=== PATIENT | female | born 1935 | race Caucasian/White ===

== ENCOUNTER 2017-08-13 19:11 | Inpatient (IN) | payer OTHER, MEDICAID ==
[2017-08-13] MEDS: ONDANSETRON 4 MG INJ IV (20:26)
[2017-08-13] MEDS: SOD CHLORIDE 0.9% 1,000 ML IV (20:26)
[2017-08-13] MEDS: morphine 4 MG/ML VIAL IV (20:26)
[2017-08-13 20:29] LABS: ADD MAN DIFF? NO
[2017-08-13 20:32] LABS: BASOPHILS % 0.4 % (0.0-2.0); EOSINOPHILS # 0.3 10^3/ul (0.0-0.5); EOSINOPHILS % 3.6 % (0.0-7.0); HEMATOCRIT 40.4 % (37.0-47.0); HEMOGLOBIN 13.3 g/dl (12.0-16.0); LYMPHOCYTES # 1.9 10^3/ul (0.8-2.9); LYMPHOCYTES % 20.5 % (15.0-51.0); MEAN CORPUSCULAR HEMOGLOBIN 26.8 pg (29.0-33.0); MEAN CORPUSCULAR HGB CONC 32.9 g/dl (32.0-37.0); MEAN CORPUSCULAR VOLUME 81.5 fl (82.0-101.0); MEAN PLATELET VOLUME 10.8 fl (7.4-10.4); MONOCYTE # 0.4 10^3/ul (0.3-0.9); MONOCYTES % 4.7 % (0.0-11.0); NEUTROPHIL # 6.6 10^3/ul (1.6-7.5); NEUTROPHILS % 70.3 % (39.0-77.0); PLATELET COUNT 163 10^3/UL (140-415); RED BLOOD COUNT 4.96 10^6/ul (4.20-5.40)
[2017-08-13 20:32] LABS: WHITE BLOOD COUNT 9.4 10^3/ul (4.8-10.8)
[2017-08-13 20:51] LABS: ANION GAP 15 (8-16); BLOOD UREA NITROGEN 24 mg/dl (7-20); CALCIUM 9.7 mg/dl (8.4-10.2); CARBON DIOXIDE 23 mmol/L (21-31); CHLORIDE 106 mmol/L (97-110); CREATININE 0.73 mg/dl (0.44-1.00); GLUCOSE 331 mg/dl (70-220); INR 0.91; POTASSIUM 4.6 mmol/L (3.5-5.1); PROTIME 12.3 Sec (11.9-14.9); SODIUM 139 mmol/L (135-144)
[2017-08-13 20:52] LABS: PARTIAL THROMBOPLASTIN TIME 24.7 Sec (25.0-35.0)
[2017-08-13 21:09] LABS: ADD UMIC YES; UR ASCORBIC ACID NEGATIVE (NEGATIVE); UR BACTERIA FEW /HPF (NONE SEEN); UR BILIRUBIN (Dip) NEGATIVE (NEGATIVE); UR BLOOD (Dip) 1+ mg/dL (NEGATIVE); UR CLARITY CLOUDY (CLEAR); UR COLOR YELLOW (YELLOW); UR GLUCOSE (Dip) 3+ mg/dL (NEGATIVE); UR KETONES (Dip) NEGATIVE (NEGATIVE); UR LEUKOCYTE ESTERASE (Dip) 2+ Leu/ul (NEGATIVE); UR MUCUS FEW /HPF (NONE SEEN); UR NITRITE (Dip) NEGATIVE (NEGATIVE); UR RBC 6 /HPF (0-5); UR SPECIFIC GRAVITY (Dip) 1.017 (1.003-1.030); UR TOTAL PROTEIN (Dip) 1+ mg/dl (NEGATIVE); UR UROBILINOGEN (Dip) 1+ mg/dL (NEGATIVE); UR WBC 163 /HPF (0-5)
[2017-08-13] MEDS: morphine 10 MG INJ IV (23:43)
[2017-08-14] MEDS ORDERED: morphine 2 MG INJ IV (01:30)
[2017-08-14 01:32] LABS: ADD UMIC YES; UR ASCORBIC ACID NEGATIVE (NEGATIVE); UR BACTERIA FEW /HPF (NONE SEEN); UR BILIRUBIN (Dip) NEGATIVE (NEGATIVE); UR BLOOD (Dip) NEGATIVE (NEGATIVE); UR CLARITY SLIGHTLY CLOUDY (CLEAR); UR COLOR YELLOW (YELLOW); UR GLUCOSE (Dip) 3+ mg/dL (NEGATIVE); UR KETONES (Dip) TRACE mg/dL (NEGATIVE); UR LEUKOCYTE ESTERASE (Dip) TRACE Leu/ul (NEGATIVE); UR NITRITE (Dip) POSITIVE (NEGATIVE); UR RBC 0 /HPF (0-5); UR SPECIFIC GRAVITY (Dip) 1.013 (1.003-1.030); UR TOTAL PROTEIN (Dip) NEGATIVE (NEGATIVE); UR UROBILINOGEN (Dip) NEGATIVE (NEGATIVE); UR WBC 5 /HPF (0-5)
[2017-08-14] MEDS ORDERED: GLUCOSE GEL 15 GRAM TUBE PO ×2 (02:00)
[2017-08-14] MEDS ORDERED: GLUCOSE GEL 15 GRAM TUBE BUCCAL (02:00)
[2017-08-14] MEDS: ACCU-CHEK XX (02:00)
[2017-08-14] MEDS ORDERED: DEXTROSE 50% 50 ML SYRINGE IV ×2 (02:00)
[2017-08-14] MEDS ORDERED: GLUCAGON 1 MG INJ IM (02:00)
[2017-08-14] MEDS ORDERED: ALBUTEROL/IPRATROPIUM (NEB) 3 ML AMP HHN (05:30)
[2017-08-14] MEDS ORDERED: ALBUTEROL HFA 8 GM INHALER INH (05:30)
[2017-08-14] MEDS ORDERED: NACL 0.9% 3 ML SYG IV (05:30)
[2017-08-14] MEDS: CEFTRIAXONE 1 GM/50 ML (PMX) 50 ML IVPB (05:57)
[2017-08-14 06:24] LABS: ADD MAN DIFF? NO
[2017-08-14 06:31] LABS: BASOPHILS % 0.3 % (0.0-2.0); EOSINOPHILS # 0.1 10^3/ul (0.0-0.5); EOSINOPHILS % 1.1 % (0.0-7.0); HEMATOCRIT 35.7 % (37.0-47.0); HEMOGLOBIN 11.7 g/dl (12.0-16.0); LYMPHOCYTES # 1.8 10^3/ul (0.8-2.9); LYMPHOCYTES % 20.1 % (15.0-51.0); MEAN CORPUSCULAR HEMOGLOBIN 26.7 pg (29.0-33.0); MEAN CORPUSCULAR HGB CONC 32.8 g/dl (32.0-37.0); MEAN CORPUSCULAR VOLUME 81.5 fl (82.0-101.0); MEAN PLATELET VOLUME 10.3 fl (7.4-10.4); MONOCYTE # 0.6 10^3/ul (0.3-0.9); MONOCYTES % 7.1 % (0.0-11.0); NEUTROPHIL # 6.3 10^3/ul (1.6-7.5); NEUTROPHILS % 70.9 % (39.0-77.0); PLATELET COUNT 149 10^3/UL (140-415); RED BLOOD COUNT 4.38 10^6/ul (4.20-5.40)
[2017-08-14 06:31] LABS: WHITE BLOOD COUNT 8.9 10^3/ul (4.8-10.8)
[2017-08-14 07:04] LABS: ALANINE AMINOTRANSFERASE 23 IU/L (13-69); ALBUMIN 3.8 g/dl (3.3-4.9); ALBUMIN/GLOBULIN RATIO 1.31; ALKALINE PHOSPHATASE 121 IU/L (42-121); ANION GAP 16 (8-16); ASPARTATE AMINO TRANSFERASE 20 IU/L (15-46); BLOOD UREA NITROGEN 20 mg/dl (7-20); CARBON DIOXIDE 27 mmol/L (21-31); CHLORIDE 103 mmol/L (97-110); CREATININE 0.68 mg/dl (0.44-1.00); GLUCOSE 301 mg/dl (70-220); POTASSIUM 4.5 mmol/L (3.5-5.1); SODIUM 141 mmol/L (135-144); TOTAL PROTEIN 6.7 g/dl (6.1-8.1)
[2017-08-14 07:11] LABS: HEMOGLOBIN A1C 11.4 % (0-5.9)
[2017-08-14] MEDS: DEXTROSE 5%-0.45% NACL 1,000 ML IV (07:30)
[2017-08-14] MEDS: HEPARIN 5,000 UNIT/0.5 ML VIAL SC ×2 (08:31→21:25)
[2017-08-14] MEDS: LOSARTAN 50 MG TAB PO ×2 (08:31→12:29)
[2017-08-14] MEDS: INSULIN GLARGINE [LANtus] 3 ML PEN SC (08:34)
[2017-08-14] MEDS: INSULIN ASPART [NOVOLOG] 3 ML PEN SC ×4 (08:36→21:27)
[2017-08-14] MEDS ORDERED: hydrALAzine 20 MG INJ (18:57)
[2017-08-14] MEDS: hydrALAzine 20 MG INJ IV (18:58)
[2017-08-14] MEDS: morphine LIQ (10 MG/5 ML) CUP PO (21:19)
[2017-08-15] MEDS: SOD CHLORIDE 0.9% 1,000 ML IV ×2 (00:05→12:30)
[2017-08-15] MEDS: ACCU-CHEK XX (01:26)
[2017-08-15 06:18] LABS: ADD MAN DIFF? NO
[2017-08-15 06:30] LABS: BASOPHILS % 0.3 % (0.0-2.0); EOSINOPHILS # 0.3 10^3/ul (0.0-0.5); EOSINOPHILS % 4.2 % (0.0-7.0); HEMATOCRIT 34.9 % (37.0-47.0); HEMOGLOBIN 11.5 g/dl (12.0-16.0); LYMPHOCYTES # 1.5 10^3/ul (0.8-2.9); MEAN CORPUSCULAR HEMOGLOBIN 26.7 pg (29.0-33.0); MEAN CORPUSCULAR VOLUME 81.2 fl (82.0-101.0); MEAN PLATELET VOLUME 10.4 fl (7.4-10.4); MONOCYTE # 0.5 10^3/ul (0.3-0.9); MONOCYTES % 8.1 % (0.0-11.0); NEUTROPHIL # 4.1 10^3/ul (1.6-7.5); NEUTROPHILS % 63.1 % (39.0-77.0); PLATELET COUNT 136 10^3/UL (140-415); RED CELL DISTRIBUTION WIDTH 14.4 % (11.5-14.5)
[2017-08-15 06:30] LABS: WHITE BLOOD COUNT 6.4 10^3/ul (4.8-10.8)
[2017-08-15 06:50] LABS: ANION GAP 11 (8-16); BLOOD UREA NITROGEN 15 mg/dl (7-20); CALCIUM 9.1 mg/dl (8.4-10.2); CARBON DIOXIDE 26 mmol/L (21-31); CHLORIDE 107 mmol/L (97-110); CREATININE 0.65 mg/dl (0.44-1.00); GLUCOSE 287 mg/dl (70-220); MAGNESIUM 1.7 mg/dl (1.7-2.5); PHOSPHORUS 3.6 mg/dl (2.5-4.9); POTASSIUM 3.9 mmol/L (3.5-5.1); SODIUM 140 mmol/L (135-144)
[2017-08-15] MEDS: INSULIN GLARGINE [LANtus] 3 ML PEN SC (08:51)
[2017-08-15] MEDS: INSULIN ASPART [NOVOLOG] 3 ML PEN SC ×4 (08:51→20:26)
[2017-08-15] MEDS: LOSARTAN 50 MG TAB PO (08:52)
[2017-08-15] MEDS: HEPARIN 5,000 UNIT/0.5 ML VIAL SC ×2 (08:52→20:25)
[2017-08-15] MEDS ORDERED: BUPIVACAINE 0.75%/DEXT (SPINAL) 2 ML INJ (13:15)
[2017-08-15] MEDS ORDERED: FENTAnyl 50 MCG/ML VIAL (13:15)
[2017-08-15] MEDS ORDERED: hydrALAzine 20 MG INJ IV (13:30)
[2017-08-15] MEDS ORDERED: ONDANSETRON 4 MG INJ IV (13:30)
[2017-08-15] MEDS ORDERED: HYDROmorphONE 1 MG/5 ML IV SYRINGE IV (13:30)
[2017-08-15] MEDS ORDERED: LABETALOL HCL 20MG INJ IV (13:30)
[2017-08-15] MEDS ORDERED: CEFAZOLIN 1 GM INJ (13:49)
[2017-08-15] MEDS: BACITRACIN/POLYMYXIN 28.35 GM OINT TOP (14:07)
[2017-08-15] MEDS: POLYMYXIN/BACITRACIN 1L IRRIG (14:07)
[2017-08-15] MEDS: CEFAZOLIN 1 GM/50 ML (PMX) 50 ML IVPB ×2 (16:13→23:06)
[2017-08-15] MEDS: hydrALAzine 20 MG INJ IV (17:22)
[2017-08-15] MEDS: morphine LIQ (10 MG/5 ML) CUP PO (17:27)
[2017-08-15] MEDS: ACETAMINOPHEN 325 MG TAB PO (20:19)
[2017-08-15] MEDS: ASPIRIN (EC) 325 MG TAB PO (20:19)
[2017-08-15] MEDS: AL HYDROX/MG HYDROX/SIMETH 30 ML CUP PO (20:19)
[2017-08-15] MEDS: ONDANSETRON 4 MG INJ IV (20:20)
[2017-08-16] MEDS: ACCU-CHEK XX (02:00)
[2017-08-16] MEDS: CEFAZOLIN 1 GM/50 ML (PMX) 50 ML IVPB (08:32)
[2017-08-16] MEDS: ASPIRIN (EC) 325 MG TAB PO ×2 (08:33→20:46)
[2017-08-16] MEDS: LOSARTAN 50 MG TAB PO (08:33)
[2017-08-16] MEDS: INSULIN ASPART [NOVOLOG] 3 ML PEN SC ×5 (08:35→20:50)
[2017-08-16] MEDS: HEPARIN 5,000 UNIT/0.5 ML VIAL SC ×2 (08:36→20:53)
[2017-08-16] MEDS: INSULIN GLARGINE [LANtus] 3 ML PEN SC (08:36)
[2017-08-16] MEDS: morphine LIQ (10 MG/5 ML) CUP PO ×2 (10:17→14:17)
[2017-08-17] MEDS: ACCU-CHEK XX (01:52)
[2017-08-17] MEDS: INSULIN ASPART [NOVOLOG] 3 ML PEN SC ×8 (08:12→20:38)
[2017-08-17] MEDS: INSULIN GLARGINE [LANtus] 3 ML PEN SC (08:13)
[2017-08-17] MEDS: ASPIRIN (EC) 325 MG TAB PO ×2 (09:41→20:33)
[2017-08-17] MEDS: LOSARTAN 50 MG TAB PO (09:41)
[2017-08-17] MEDS: HEPARIN 5,000 UNIT/0.5 ML VIAL SC ×2 (09:44→20:39)
[2017-08-17] MEDS ORDERED: INSULIN ASPART [NOVOLOG] 3 ML PEN SC ×2 (12:25→18:00)
[2017-08-17] MEDS: morphine LIQ (10 MG/5 ML) CUP PO (14:55)
[2017-08-18] MEDS: ACCU-CHEK XX (02:00)
[2017-08-18] MEDS: LOSARTAN 50 MG TAB PO (08:09)
[2017-08-18] MEDS: ASPIRIN (EC) 325 MG TAB PO (08:09)
[2017-08-18] MEDS: HEPARIN 5,000 UNIT/0.5 ML VIAL SC (08:14)
[2017-08-18] MEDS: INSULIN ASPART [NOVOLOG] 3 ML PEN SC ×6 (08:14→17:31)
[2017-08-18] MEDS: INSULIN GLARGINE [LANtus] 3 ML PEN SC (08:14)
[2017-08-18] MEDS: morphine LIQ (10 MG/5 ML) CUP PO (15:23)
[2017-08-18] MEDS ORDERED: BENZOCAINE 10% 7 GM GEL MM (16:00)
[2017-08-18] MEDS ORDERED: BENZOCAINE 20% 0.33 OZ. GEL MM (16:30)
[2017-08-18] MEDS ORDERED: NITROFURANTOIN (SR) 100 MG CAP PO (21:00)
== END 2017-08-18 17:30 | DRG 481 ==
LOC: MS2 08-14 00:21 → E/R 19:11 → MS2 08-14 14:00
PROC: 0QS704Z Reposition Left Upper Femur with Internal Fixation Device, Open Approach (ICD-10-PCS; principal; 2017-08-15 13:24)
DX: S72.142A Displaced intertrochanteric fracture of left femur, initial encounter for closed fracture (principal); N39.0 Urinary tract infection, site not specified; E11.65 Type 2 diabetes mellitus with hyperglycemia; I16.0 Hypertensive urgency; B96.20 Unspecified Escherichia coli [E. coli] as the cause of diseases classified elsewhere; Z16.12 Extended spectrum beta lactamase (ESBL) resistance; I10 Essential (primary) hypertension; W01.0XXA Fall on same level from slipping, tripping and stumbling without subsequent striking against object, initial encounter; Y93.01 Activity, walking, marching and hiking; Y92.019 Unspecified place in single-family (private) house as the place of occurrence of the external cause; Y99.8 Other external cause status; Z79.82 Long term (current) use of aspirin; Z79.84 Long term (current) use of oral hypoglycemic drugs
CPT/HCPCS: 36415; 71045; 73510; 73530; 73550; 73700; 80048; 80053; 81001; 82962; 83036; 83735; 84100; 85025; 85610; 85730; 86850; 86900; 86901; 87086; 93005; 96374; 96375; 96376; 97110; 97116; 97163; 97530; 99285-25

== ENCOUNTER 2018-04-05 20:18 | Inpatient (IN) | payer OTHER ==
[2018-04-05 22:01] LABS: ADD MAN DIFF? NO
[2018-04-05] MEDS: IBUPROFEN 600 MG TAB PO (22:02)
[2018-04-05] MEDS: CEFTRIAXONE 1 GM/50 ML (PMX) 50 ML IVPB (22:03)
[2018-04-05] MEDS: SODIUM CHLORIDE 0.9% 1L BAG IV* (22:03)
[2018-04-05 22:12] LABS: ABNORMAL IP MESSAGE 1; BASOPHILS % 0.3 % (0.0-2.0); EOSINOPHILS # 0.1 10^3/ul (0.0-0.5); EOSINOPHILS % 1.1 % (0.0-7.0); HEMATOCRIT 38.1 % (37.0-47.0); HEMOGLOBIN 12.3 g/dl (12.0-16.0); LYMPHOCYTES # 0.5 10^3/ul (0.8-2.9); LYMPHOCYTES % 4.3 % (15.0-51.0); MEAN CORPUSCULAR HEMOGLOBIN 24.8 pg (29.0-33.0); MEAN CORPUSCULAR HGB CONC 32.3 g/dl (32.0-37.0); MEAN CORPUSCULAR VOLUME 76.8 fl (82.0-101.0); MEAN PLATELET VOLUME 9.8 fl (7.4-10.4); MONOCYTE # 0.6 10^3/ul (0.3-0.9); MONOCYTES % 4.9 % (0.0-11.0); NEUTROPHIL # 10.5 10^3/ul (1.6-7.5); NEUTROPHILS % 88.2 % (39.0-77.0); PLATELET COUNT 185 10^3/UL (140-415); RED BLOOD COUNT 4.96 10^6/ul (4.20-5.40); RED CELL DISTRIBUTION WIDTH 14.6 % (11.5-14.5)
[2018-04-05 22:12] LABS: WHITE BLOOD COUNT 11.9 10^3/ul (4.8-10.8)
[2018-04-05 22:24] LABS: ADD UMIC YES; UR ASCORBIC ACID NEGATIVE (NEGATIVE); UR BACTERIA FEW /HPF (NONE SEEN); UR BILIRUBIN (Dip) NEGATIVE (NEGATIVE); UR BLOOD (Dip) 1+ mg/dL (NEGATIVE); UR CLARITY SLIGHTLY CLOUDY (CLEAR); UR COLOR YELLOW (YELLOW); UR GLUCOSE (Dip) 2+ mg/dL (NEGATIVE); UR KETONES (Dip) NEGATIVE (NEGATIVE); UR LEUKOCYTE ESTERASE (Dip) 3+ Leu/ul (NEGATIVE); UR NITRITE (Dip) POSITIVE (NEGATIVE); UR RBC 7 /HPF (0-5); UR SPECIFIC GRAVITY (Dip) 1.012 (1.003-1.030); UR SQUAMOUS EPITHELIAL CELL FEW /HPF (FEW); UR TOTAL PROTEIN (Dip) NEGATIVE (NEGATIVE); UR UROBILINOGEN (Dip) NEGATIVE (NEGATIVE); UR WBC 70 /HPF (0-5)
[2018-04-05] MEDS: ONDANSETRON 4 MG INJ IV (22:26)
[2018-04-05 22:29] LABS: ALANINE AMINOTRANSFERASE 41 IU/L (13-69); ALBUMIN 4.4 g/dl (3.3-4.9); ALBUMIN/GLOBULIN RATIO 1.18; ALKALINE PHOSPHATASE 224 IU/L (42-121); ANION GAP 16 (5-13); ASPARTATE AMINO TRANSFERASE 48 IU/L (15-46); BILIRUBIN,INDIRECT 0.5 mg/dl (0-1.1); BILIRUBIN,TOTAL 0.5 mg/dl (0.2-1.3); BLOOD UREA NITROGEN 18 mg/dl (7-20); CALCIUM 10.1 mg/dl (8.4-10.2); CARBON DIOXIDE 25 mmol/L (21-31); CHLORIDE 95 mmol/L (97-110); CREATININE 0.75 mg/dl (0.44-1.00); GLUCOSE 295 mg/dl (70-220); LIPASE 58 U/L (23-300); POTASSIUM 3.2 mmol/L (3.5-5.1); SODIUM 136 mmol/L (135-144); TOTAL PROTEIN 8.1 g/dl (6.1-8.1)
[2018-04-05 22:36] LABS: PROTIME 12.3 Sec (11.9-14.9)
[2018-04-05 22:37] LABS: PARTIAL THROMBOPLASTIN TIME 23.9 Sec (23.0-35.0)
[2018-04-05 22:41] LABS: TROPONIN-I < 0.012 ng/ml (0.000-0.120)
[2018-04-05 22:52] LABS: POSITIVE DIFF @See below
[2018-04-06] MEDS ORDERED: ONDANSETRON 4 MG INJ IV (01:30)
[2018-04-06] MEDS ORDERED: DEXTROSE 50% 50 ML SYRINGE IV ×2 (01:30)
[2018-04-06] MEDS ORDERED: NACL 0.9% 3 ML SYG IV (01:30)
[2018-04-06] MEDS ORDERED: HYDROCODONE/APAP (5/325) TAB PO (01:30)
[2018-04-06] MEDS ORDERED: GLUCAGON 1 MG INJ IM (01:30)
[2018-04-06] MEDS ORDERED: GLUCOSE GEL 15 GRAM TUBE PO ×2 (01:30)
[2018-04-06] MEDS ORDERED: ACETAMINOPHEN 325 MG TAB PO (01:30)
[2018-04-06] MEDS ORDERED: GLUCOSE GEL 15 GRAM TUBE BUCCAL (01:30)
[2018-04-06] MEDS: ACCU-CHEK XX (02:00)
[2018-04-06 03:09] LABS: LACTIC ACID 2.6 mmol/L (0.5-2.0)
[2018-04-06] MEDS: LOSARTAN 50 MG TAB PO (08:14)
[2018-04-06] MEDS: metFORMIN 850 MG TAB PO ×2 (08:14→18:55)
[2018-04-06] MEDS: HYDROCHLOROTHIAZIDE 25 MG TAB PO (08:14)
[2018-04-06 08:24] LABS: ADD MAN DIFF? NO
[2018-04-06 08:28] LABS: WHITE BLOOD COUNT 9.1 10^3/ul (4.8-10.8)
[2018-04-06 08:29] LABS: BASOPHILS % 0.1 % (0.0-2.0); EOSINOPHILS % 0.2 % (0.0-7.0); HEMATOCRIT 36.3 % (37.0-47.0); HEMOGLOBIN 11.6 g/dl (12.0-16.0); LYMPHOCYTES % 11.3 % (15.0-51.0); MEAN CORPUSCULAR HEMOGLOBIN 24.8 pg (29.0-33.0); MEAN CORPUSCULAR VOLUME 77.6 fl (82.0-101.0); MEAN PLATELET VOLUME 9.7 fl (7.4-10.4); MONOCYTE # 0.4 10^3/ul (0.3-0.9); MONOCYTES % 4.6 % (0.0-11.0); NEUTROPHIL # 7.6 10^3/ul (1.6-7.5); NEUTROPHILS % 83.5 % (39.0-77.0); PLATELET COUNT 165 10^3/UL (140-415); RED BLOOD COUNT 4.68 10^6/ul (4.20-5.40)
[2018-04-06] MEDS: HEPARIN 5,000 UNIT/1 ML VIAL SC ×2 (08:30→20:36)
[2018-04-06] MEDS: INSULIN ASPART [NOVOLOG] 3 ML PEN SC ×4 (08:30→20:35)
[2018-04-06 08:49] LABS: LACTIC ACID 1.7 mmol/L (0.5-2.0)
[2018-04-06 08:51] LABS: ALANINE AMINOTRANSFERASE 37 IU/L (13-69); ALBUMIN 3.5 g/dl (3.3-4.9); ALKALINE PHOSPHATASE 125 IU/L (42-121); ANION GAP 5 (5-13); ASPARTATE AMINO TRANSFERASE 30 IU/L (15-46); BILIRUBIN,INDIRECT 0.4 mg/dl (0-1.1); BILIRUBIN,TOTAL 0.4 mg/dl (0.2-1.3); BLOOD UREA NITROGEN 15 mg/dl (7-20); CALCIUM 9.1 mg/dl (8.4-10.2); CARBON DIOXIDE 31 mmol/L (21-31); CHLORIDE 106 mmol/L (97-110); CREATININE 0.71 mg/dl (0.44-1.00); GLUCOSE 224 mg/dl (70-220); POTASSIUM 3.8 mmol/L (3.5-5.1); SODIUM 142 mmol/L (135-144); TOTAL PROTEIN 6.4 g/dl (6.1-8.1)
[2018-04-06] MEDS: CEFEPIME 1GM/50 ML (PMX) 50 ML IVPB ×2 (09:29→20:31)
[2018-04-06] MEDS: GUAIFENESIN 20 MG/ML 5ML CUP PO ×2 (13:57→20:56)
[2018-04-06] MEDS: SOD CHLORIDE 0.45% 1,000 ML IV (15:28)
[2018-04-06] MEDS: INSULIN GLARGINE [LANTus] (100 UNITS/ML) SYG SC (20:36)
[2018-04-07] MEDS: ACCU-CHEK XX (02:39)
[2018-04-07] MEDS: SOD CHLORIDE 0.45% 1,000 ML IV (04:01)
[2018-04-07 05:26] LABS: ADD MAN DIFF? NO
[2018-04-07 05:36] LABS: BASOPHILS % 0.2 % (0.0-2.0); EOSINOPHILS % 0.7 % (0.0-7.0); HEMATOCRIT 34.4 % (37.0-47.0); HEMOGLOBIN 11.2 g/dl (12.0-16.0); LYMPHOCYTES # 1.3 10^3/ul (0.8-2.9); LYMPHOCYTES % 22.3 % (15.0-51.0); MEAN CORPUSCULAR HEMOGLOBIN 24.8 pg (29.0-33.0); MEAN CORPUSCULAR HGB CONC 32.6 g/dl (32.0-37.0); MEAN CORPUSCULAR VOLUME 76.1 fl (82.0-101.0); MEAN PLATELET VOLUME 9.6 fl (7.4-10.4); MONOCYTE # 0.4 10^3/ul (0.3-0.9); MONOCYTES % 7.3 % (0.0-11.0); NEUTROPHIL # 4.1 10^3/ul (1.6-7.5); NEUTROPHILS % 69.2 % (39.0-77.0); PLATELET COUNT 138 10^3/UL (140-415); RED BLOOD COUNT 4.52 10^6/ul (4.20-5.40); RED CELL DISTRIBUTION WIDTH 14.9 % (11.5-14.5)
[2018-04-07 05:36] LABS: WHITE BLOOD COUNT 5.9 10^3/ul (4.8-10.8)
[2018-04-07 06:04] LABS: ANION GAP 6 (5-13); BLOOD UREA NITROGEN 12 mg/dl (7-20); CARBON DIOXIDE 28 mmol/L (21-31); CHLORIDE 102 mmol/L (97-110); CREATININE 0.79 mg/dl (0.44-1.00); GLUCOSE 109 mg/dl (70-220); MAGNESIUM 1.5 mg/dl (1.7-2.5); PHOSPHORUS 3.9 mg/dl (2.5-4.9); POTASSIUM 3.4 mmol/L (3.5-5.1); SODIUM 136 mmol/L (135-144)
[2018-04-07] MEDS: INSULIN ASPART [NOVOLOG] 3 ML PEN SC ×2 (08:00→12:55)
[2018-04-07] MEDS: metFORMIN 850 MG TAB PO (08:56)
[2018-04-07] MEDS: CEFEPIME 1GM/50 ML (PMX) 50 ML IVPB (08:56)
[2018-04-07] MEDS: HYDROCHLOROTHIAZIDE 25 MG TAB PO (08:56)
[2018-04-07] MEDS: LOSARTAN 50 MG TAB PO (08:57)
[2018-04-07] MEDS: HEPARIN 5,000 UNIT/1 ML VIAL SC (08:59)
[2018-04-07] MEDS: HYDROCODONE/APAP (5/325) TAB PO (09:00)
[2018-04-07] MEDS: AL HYDROX/MG HYDROX/SIMETH 30 ML CUP PO (14:12)
== END 2018-04-07 14:45 | disposition home or self-care (01) | DRG 872 ==
LOC: 2NE 23:13 → E/R 20:18
DX: A41.9 Sepsis, unspecified organism (principal); N39.0 Urinary tract infection, site not specified; E11.65 Type 2 diabetes mellitus with hyperglycemia; B96.20 Unspecified Escherichia coli [E. coli] as the cause of diseases classified elsewhere; E87.6 Hypokalemia; I16.0 Hypertensive urgency; I10 Essential (primary) hypertension; Z16.12 Extended spectrum beta lactamase (ESBL) resistance; Z79.4 Long term (current) use of insulin
CPT/HCPCS: 36415; 71045; 80048; 80053; 81001; 82962; 83036; 83605; 83690; 83735; 84100; 84484; 85025; 85610; 85730; 87040; 87086; 90686; 93005; 96374; 97161; 99291-25